=== PATIENT | male | born 1995 | race Caucasian/White ===

== ENCOUNTER 2024-01-10 12:39 | Emergency (ER) | payer OTHER ==
[2024-01-10 12:48] VITALS: RESP 18
[2024-01-10] MEDS: LIDOCAINE 1% INJ 10MG/ML (20 ML MDV) SQ ONE (12:54)
[2024-01-10] MEDS: DIPH,PERTUS(ACELL)TETVAC-LF 0.5 ML VIAL IM ONE (13:01)
[2024-01-10] MEDS: AMOXIC-POT CLAV 875-125MG 1 EACH TAB PO STA (13:04)
--- NOTE | 2024-01-10 13:51 | XR ---
EXAMINATION TYPE: XR wrist limited LT DATE OF EXAM: 01/10/2024 COMPARISON: NONE HISTORY: 28-year-old male needle in wrist, pain TECHNIQUE: 2 views FINDINGS: There is a 3 cm long nail along the radial side of the wrist entering from the proximal rad ial aspect and direct posterior, distal, and ulnar. The tip of the nail appears to break the dorsal s kin surface. No underlying acute fracture seen. Corticated ossific density at the ulnar styloid proce ss either an accessory ossicle or sequela of old injury. IMPRESSION: 3 cm long nail embedded within the radial side of the wrist. The tip extends beyond the dorsal skin s urface. (On these views, it is difficult to clearly determine if the nail is solely within the soft t issues or extends through the bone). [facility], , 01/10/2024 1:48 PM
--- NOTE | 2024-01-10 13:54 | ED ---
General Adult HPI - General Chief complaint: Extremity Injury, Upper Stated complaint: Nail in arm Time Seen by Provider: 01/10/24 12:49 Source: patient, RN notes reviewed, old records reviewed Mode of arrival: ambulatory Limitations: no limitations - History of Present Illness Initial comments: 28-year-old male with nail embedded in the lateral aspect of the left wrist. Patient denies significant bleeding. Uncertain of tetanus status. Patient is unable to move his thumb completely but has normal sensation to the hand. - Related Data Previous Rx's Medication Instructions Recorded Amoxic-Pot Clav 875-125Mg 1 tab PO Q12HR 7 Days #14 tab 01/10/24 [Augmentin 875-125] Allergies Allergy/AdvReac Type Severity Reaction Status Date / Time No Known Allergies Allergy Verified 01/10/24 12:44 Review of Systems ROS Statement: Those systems with pertinent positive or pertinent negative responses have been documented in the HPI. ROS Other: All systems not noted in ROS Statement are negative. Past Medical History Past Medical History: No Reported History Past Surgical History: No Surgical Hx Reported Smoking Status: Never smoker Past Alcohol Use History: None Reported Past Drug Use History: None Reported General Exam Limitations: no limitations General appearance: alert, in no apparent distress Head exam: Present: atraumatic, normocephalic Eye exam: Present: normal appearance, PERRL ENT exam: Present: normal exam Respiratory exam: Present: normal lung sounds bilaterally. Absent: respiratory distress, wheezes Cardiovascular Exam: Present: regular rate, normal rhythm GI/Abdominal exam: Present: soft. Absent: distended, tenderness Extremities exam: Present: other (Jose Luis nail penetrating the soft tissue on the lateral aspect of the left wrist. There is no hematoma. No active bleeding. Radial pulse is 2+. Normal cap refill within the hand. Normal sensation in the hand. The extension of the thumb is somewhat limited) Neurological exam: Present: alert, oriented X3 Psychiatric exam: Present: normal affect, normal mood Course Vital Signs 01/10/24 12:45 Temperature 98.3 F Pulse Rate 68 Respiratory 18 Rate Blood Pressure 144/91 O2 Sat by Pulse 100 Oximetry Procedures - Forgein Body Removal Soft Tissue Consent Obtained: verbal consent Site: upper extremity Anesthetic Used: lidocaine 1% Amount (mLs): 5 Foreign Body Suspected: Metal Foreign Body Removed: yes Foreign Body Removal Technique: Instrumentation Patient Tolerated Procedure: well Additional Comments: Copiously irrigated with tap water and chlorhexidine scrub - Orthopedic Splinting/Casting Injury #1 Side: left Upper Extremity Injury Location: wrist Upper Extremity Immobilizer: thumb spica Medical Decision Making - Medical Decision Making Was pt. sent in by a medical professional or institution (HANG Pollack, PROPULSION SYSTEMS ENGINEER, urgent care, hospital, or assisted...) When possible be specific @ -No Did you speak to anyone other than the patient for history (EMS, parent, family, police, friend...)? What history was obtained from this source @ -No Did you review nursing and triage notes (agree or disagree)? Why? @ -I reviewed and agree with nursing and triage notes Were old charts reviewed (outside hosp., previous admission, EMS record, old EKG, old radiological studies, urgent care reports/EKG's, assisted records)? Report findings @ -No old charts were reviewed Differential Diagnosis: Foreign body to the left wrist, tendon injury, vascular injury, bony abnormality including fracture or bony penetration. EKG interpreted by me (3pts min.). @ -As above X-rays interpreted by me (1pt min.). @KA shows nail with retention nimo in the soft tissue of the left wrist CT interpreted by me (1pt min.). @ -None done U/S interpreted by me (1pt. min.). @ -None done What testing was considered but not performed or refused? (CT, X-rays, U/S, labs)? Why? @ -None What meds were considered but not given or refused? Why? @ -None Did you discuss the management of the patient with other professionals (professionals i.e. HANG Pollack, PROPULSION SYSTEMS ENGINEER, lab, RT, psych nurse, social media strategist, cage cashier, teacher, credit products officer, residential case manager)? Give summary @ -No Was smoking cessation discussed for >3mins.? @ -No Was critical care preformed (if so, how long)? @ -No Were there social determinants of health that impacted care today? How? (Homelessness, low income, unemployed, alcoholism, drug addiction, transportation, low edu. Level, literacy, decrease access to med. care, nursing home, rehab)? @ -No Was there de-escalation of care discussed even if they declined (Discuss DNR or withdrawal of care, Hospice)? DNR status @ -No What co-morbidities impacted this encounter? (DM, HTN, Smoking, COPD, CAD, Cancer, CVA, ARF, Chemo, Hep., AIDS, mental health diagnosis, sleep apnea, morbid obesity)? @ -None Was patient admitted / discharged? Hospital course, mention meds given and route, prescriptions, significant lab abnormalities, going to OR and other pertinent info. @ -[28 yo male to the distal wrist nail. there does not appear to be any vascular injury significant swelling. Normal sensation of the hand. There is limited range of motion. Radial pulses 2+ without hematoma or especially extension of the left thumb. X-ray does not show any acute bony abnormality. The nail is able to be removed with forceps. The puncture wound is copiously irrigated. The patient started on prophylactic antibiotics. I discussed case with Dr. Brian natarajan for hand surgery who will arrange close outpatient follow- up. Patient is placed in a thumb spica splint and prescribed Augmentin. Undiagnosed new problem with uncertain prognosis? @ -No Drug Therapy requiring intensive monitoring for toxicity (Heparin, Nitro, Insulin, Cardizem)? @ -No Were any procedures done? @ -[yes, foreign body removal, splinting Diagnosis/symptom? @ nail in wrist Acute, or Chronic, or Acute on Chronic? @ -acute Uncomplicated (without systemic symptoms) or Complicated (systemic symptoms)? @ -Default Side effects of treatment? @ -No Exacerbation, Progression, or Severe Exacerbation? @ -No Poses a threat to life or bodily function? How? (Chest pain, [place], [place], pneumonia, PE, COPD, DKA, ARF, appy, cholecystitis, CVA, Diverticulitis, Homicidal, Suicidal, threat to staff... and all critical care pts) @ -No Disposition Clinical Impression: Injury by nail gun Disposition: HOME SELF-CARE Condition: Fair Instructions (If sedation given, give patient instructions): Soft Tissue Foreign Body (ED), Puncture Wound (ED) Prescriptions: Amoxic-Pot Clav 875-125Mg [Augmentin 875-125] 1 tab PO Q12HR 7 Days #14 tab Is patient prescribed a controlled substance at d/c from ED?: No Referrals: None,Stated [Primary Care Provider] - 1-2 days Alka Torres DO [Doctor of Osteopathic Medicine] - 1-2 days Time of Disposition: 13:54
[2024-01-10 14:08] VITALS: BP 130/77; PULSE 84; TEMP 97.9
== END 2024-01-10 14:09 | disposition home or self-care (01) ==
LOC: EC 12:39
DX: S69.92XA Unspecified injury of left wrist, hand and finger(s), initial encounter (principal); Z23 Encounter for immunization; W29.4XXA Contact with nail gun, initial encounter
CPT/HCPCS: 73100; 90715; 99283; 90471; 29125; J2003